=== PATIENT | female | born 1935 | race Caucasian/White ===

== ENCOUNTER 2016-07-08 17:44 | Emergency (ER) | payer MEDICARE ==
[2014-11-23 15:52] VITALS: BMI 21.3
[~2016-07-08 17:44] MED LIST: ARICEPT10 MG PO; BAYER CHEWABLE81 MG PO; BUSPAR10 MG PO; BYSTOLIC10 MG PO; CALCIUM 600+D T1 TA1 PO; KEPPRA250 MG PO; LIPITOR20 MG PO; LISINOPRIL5 MG PO; PERPHENAZINE2 MG PO; VITAMIN C250 MG PO; XANAX0.5 MG PO
[2016-07-08 19:06] LABS: APTT 29.4 SECONDS (22.8-39.4)
[2016-07-08 19:07] LABS: INR 1.11 (0.85-1.17); PROTIME 14.2 SECONDS (11.6-15.0)
[2016-07-08 19:12] LABS: ALBUMIN 3.9 g/dL (3.4-5.0); ANION GAP 13.7 mmol/L (8-16); BILIRUBIN - TOTAL 0.93 mg/dL (0.2-1.3); CALCIUM 8.9 mg/dL (8.5-10.1); CARBON DIOXIDE 27.2 mmol/L (21.0-32.0); POTASSIUM - SERUM 3.9 mmol/L (3.5-5.1)
[2016-07-08 19:17] LABS: HEMATOCRIT 40.6 % (36.0-48.0); HEMOGLOBIN 13.6 g/dL (12-16); MCH 32.6 pg (26.0-34.0); MCHC 33.5 g/dL (31.0-37.0); MCV 97.4 fL (80.0-100.0); MEAN PLATELET VOLUME 11.1 fL (7.4-10.4); PLATELET COUNT 185 10x3/uL (130-400); RBC 4.17 10x6/uL (4.00-5.40); RDW 12.4 % (11.5-14.5)
[2016-07-08 19:33] LABS: LYMPHOCYTES 45 % (15-50); NEUTROPHILS 55 % (40-80); PLATELET ESTIMATE NORMAL
== END 2016-07-08 20:25 | disposition home or self-care (01) ==
LOC: D.ER 17:44
PROVIDERS: Emergency Medicine
DX: G40.909 Epilepsy, unspecified, not intractable, without status epilepticus (principal); I10 Essential (primary) hypertension

== ENCOUNTER 2018-02-20 09:11 | Emergency (ER) | payer MEDICARE ==
[~2018-02-20] VITALS: Ht 166.4 cm; Wt 75.0 kg
[2018-02-20 09:14] VITALS: Ht 166.4 cm; Wt 75.0 kg
[2018-02-20] MEDS ORDERED: SEROQUEL50 MG PO (09:16)
[2018-02-20] MEDS ORDERED: TYLENOL W/CODEI1 TAB PO (10:01)
[2018-02-20 10:52] VITALS: BP 152/72
== END 2018-02-20 10:51 ==
LOC: D.ER 09:11
DX: R07.89 Other chest pain (principal); W18.30XA Fall on same level, unspecified, initial encounter; Y93.89 Activity, other specified; Y92.129 Unspecified place in nursing home as the place of occurrence of the external cause; G40.909 Epilepsy, unspecified, not intractable, without status epilepticus; I10 Essential (primary) hypertension; F03.90 Unspecified dementia, unspecified severity, without behavioral disturbance, psychotic disturbance, mood disturbance, and anxiety

== ENCOUNTER 2018-02-20 14:02 | Emergency (ER) | payer MEDICARE ==
[~2018-02-20] VITALS: Ht 166.4 cm; Wt 59.1 kg
[~2018-02-20 14:02] MED LIST changes: +SEROQUEL50 MG PO; +TYLENOL W/CODEI1 TAB PO
[2018-02-20 14:08] VITALS: Ht 166.4 cm; Wt 59.1 kg
[2018-02-20 16:38] VITALS: BP 158/75
== END 2018-02-20 16:38 ==
LOC: D.ER 14:02
DX: S40.012A Contusion of left shoulder, initial encounter (principal); W18.30XA Fall on same level, unspecified, initial encounter; Y93.89 Activity, other specified; Y92.129 Unspecified place in nursing home as the place of occurrence of the external cause; S20.212A Contusion of left front wall of thorax, initial encounter; G40.909 Epilepsy, unspecified, not intractable, without status epilepticus; I10 Essential (primary) hypertension; F03.90 Unspecified dementia, unspecified severity, without behavioral disturbance, psychotic disturbance, mood disturbance, and anxiety

== ENCOUNTER 2018-05-07 15:28 | Emergency (ER) | payer MEDICARE ==
[~2018-05-07] VITALS: Ht 166.4 cm; Wt 58.6 kg
[2018-05-07 15:29] VITALS: Ht 166.4 cm; Wt 58.6 kg
[2018-05-07] MEDS ORDERED: MIRALAX17 GM PO (17:02)
[2018-05-07 18:15] VITALS: BP 190/68
== END 2018-05-07 18:15 | disposition home or self-care (01) ==
LOC: D.ER 15:28
DX: M25.552 Pain in left hip (principal); R51 Headache; W18.30XA Fall on same level, unspecified, initial encounter; Y93.89 Activity, other specified; Y92.099 Unspecified place in other non-institutional residence as the place of occurrence of the external cause; G40.909 Epilepsy, unspecified, not intractable, without status epilepticus; I11.0 Hypertensive heart disease with heart failure; I50.9 Heart failure, unspecified; F03.90 Unspecified dementia, unspecified severity, without behavioral disturbance, psychotic disturbance, mood disturbance, and anxiety

== ENCOUNTER 2018-08-30 15:30 | Inpatient (IN) | payer MEDICARE ==
[~2018-08-30] VITALS: Ht 166.4 cm; Wt 59.8 kg
[~2018-08-30 15:30] MED LIST changes: +MIRALAX17 GM PO
--- NOTE | 2018-08-31 10:38 | NUR ---
ATIVAN 0.5 MG AND HALDOL 2 MG IM GIVEN FOR AGGRESSION WITH STAFF.
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
--- NOTE | 2018-08-31 11:30 | NUR ---
MEDICATION DID NOT HELP CALM PATIENT VERY MUCH.
[2018-08-31 12:05] LABS: BASOPHILS 0.1 % (0-2); EOSINOPHILS 0.8 % (0-7); HEMATOCRIT 38.8 % (36.0-48.0); HEMOGLOBIN 13.1 g/dL (12-16); IMMATURE GRANULOCYTES 0.1 % (0-5); MCH 32.8 pg (26.0-34.0); MCHC 33.8 g/dL (31.0-37.0); MEAN PLATELET VOLUME 10.9 fL (7.4-10.4); MONOCYTES 4.4 % (2-11); NEUTROPHILS 47.6 % (40-80); RDW 12.7 % (11.5-14.5); WBC 9.1 10x3/uL (4.8-10.8)
[2018-08-31 12:06] LABS: PLATELET COUNT 146 10x3/uL (130-400)
[2018-08-31] MEDS ORDERED: LIPITOR40 MG PO (12:29)
[2018-08-31 12:33] LABS: ALBUMIN 3.9 g/dL (3.4-5.0); ANION GAP 11.9 mmol/L (8-16); BILIRUBIN - TOTAL 0.93 mg/dL (0.2-1.3); CALCIUM 8.7 mg/dL (8.5-10.1); CHOL - HDL RATIO 2.1 ratio (2.3-4.1); LDL-HDL RATIO 0.6 ratio (1.5-3.5); POTASSIUM - SERUM 3.9 mmol/L (3.5-5.1); PROTEIN - SERUM 6.9 g/dL (6.4-8.2); THYROID STIMULATING HORMONE 3.79 uIU/mL (0.36-3.74)
--- NOTE | 2018-08-31 18:33 | NUR ---
PATIENT STARTED BANGING ON WINDOWS AND DOORS. ATIVAN 0.5 MG AND HALDOL 2 MG IM GIVEN IN LEFT DELTOID.
--- NOTE | 2018-08-31 19:28 | NUR ---
PATIENT HAS CALMED SOME. ASSISTED TO RECLINER, RESTING QUIETLY WITH EYES CLOSED.
--- NOTE | 2018-08-31 21:07 | NUR ---
RECEIVED IN DAYROOM. SITTING IN A RECLINING CHAIR. VERY CONFUSED. NO SIGNS OF AGGRESSION AT THIS TIME. ATTEMPTS TO STAND WITHOUT ASSIST. IDANIA ALARM SOUNDING. REDIRECT AND REORIENT NEEDED. CONTINUES TO SIT IN A RECLINER. CONTINUE PLAN OF CARE
[2018-09-01 08:30] VITALS: BP 183/87
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
[2018-09-01 11:04] VITALS: Ht 166.4 cm; Wt 59.8 kg
--- NOTE | 2018-09-01 11:30 | NUR ---
PRN EFFECTIVE AT THIS TIME. PT. SITTING IN DAYROOM WITH PEERS . NO AGGRESSION NOTED AT THIS TIME. WILL CONTINUE TO MONITOR Q 15 MINUTES FOR SAFETY.
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
--- NOTE | 2018-09-01 14:45 | NUR ---
SITTING IN RECLINER IN DAYROOM, CONFUSED, AMBULATES WITH ASSIST, DIFFICULTY FOLLOWING DIRECTIONS, COMBATIVE WITH RE-DIRECTION. MEDS ADMIN PER ORDERS PER MED NURSE. SOMETIMES UNCOOPERATIVE BUT CAN BE RE-DIRECTED. CONT POC INCLUDING MEDS AND GROUP THERAPY DIRECTED.
[2018-09-01 17:08] LABS: FOLATE (FOLIC ACID) - SERUM 11.5 ng/mL (>3.0)
[2018-09-01 20:00] VITALS: BP 153/66
--- NOTE | 2018-09-01 22:03 | NUR ---
RECEIVED IN DAYROOM. RESTING IN A RECLING CHIAR. RESTLESS AT TIMES. COOPERATIVE WITH ASSESSMENT. NO SIGNS OF AGGRESSION. REDIRECT AND REORIENT NEEDED. RESTING QUIETLY IN BED AT THIS TIME. CONTINUE PLAN OF CARE
--- NOTE | 2018-09-01 23:05 | NUR ---
PATIENT DID NOT TAKE P.M. MEDICATIONS. WILL CONT TO ENCOURAGE MEDICATIONS.
[2018-09-02 10:33] VITALS: BP 156/75
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
--- NOTE | 2018-09-02 17:15 | NUR ---
ATIVAN 0.5MG PO AND HALDOL 2MG IM GIVEN FOR AGGRESSION WITH STAFF.WILL NOT REDIRECT.
--- NOTE | 2018-09-02 18:15 | NUR ---
GOOD RESPONSE TO ATIVAN AND HALDOL.IS VERY CONFUSED,RESPONDS TO HER NAME BUT DOES NOT SAY HER NAME WHEN ASKED.WILL CONTINUE WITH PLAN OF CARE,MONITOR FOR CHANGES AND SAFETY.
[2018-09-02 21:07] VITALS: BP 140/70
--- NOTE | 2018-09-02 21:31 | NUR ---
PT. IS AGGRESSIVE AT TIMES, DIFFICULT TO REDIRECT AT TIMES, COMPLIANT WITH MEDS. WILL FOLLOW POC
--- NOTE | 2018-09-03 14:55 | PN ---
PATIENT:VANDANA WILLIAM MEDICAL RECORD: [id number] LOCATION:ADRYAN Hart[facility]na ADMISSION DATE: 08/31/18 PROGRESS NOTE DATE OF SERVICE: 09/02/2018 SUBJECTIVE: The patient's case was discussed with staff. She has no new complaint. OBJECTIVE: The patient slept well last night. She still is not eating well. She is going to be started on Megace to assist with appetite stimulation. Her long-term prognosis is guarded. Supportive and educational interventions were made. TRANSINT:[id number] Voice Confirmation ID: [id number] DOCUMENT ID: [id number] PINKY NAM MD at 1455 CC: [id number] DICTATION DATE: 09/02/18 1358 NETWORKS SOFTWARE CONSULTANT: 09/02/18 1435 ADM IN [id number] [place] [address]
--- NOTE | 2018-09-03 18:33 | NUR ---
PATIENT SITTING IN RECLINER CHAIR NEXT TO NURSES DUE TO ATTEMPTING TO GET UP. RESP EVEN AND NONLBAORED. NO ACUTE DISTRESS NOTED. MED COMPLIANT. CHAIR ALARM IN PLACE. WILL CONT TO MONITOR Q 15 MINS.
[2018-09-03 20:43] VITALS: BP 160/60
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
--- NOTE | 2018-09-04 08:59 | NUR ---
REC'D PT SITTING AT DINING AREA TABLE. RESP EVEN AND NONLABORED. NO ACUTE DISTRESS NOTED. CONFUSION NOTED. WILL CONT PLAN OF CARE.
[2018-09-04 09:40] VITALS: BP 167/77
--- NOTE | 2018-09-04 15:38 | PN ---
PATIENT:VANDANA WILLIAM MEDICAL RECORD: [id number] LOCATION:[facility] ADMISSION DATE: 08/31/18 PROGRESS NOTE DATE OF SERVICE: 09/03/2018 SUBJECTIVE: The patient's case was discussed with staff. She has no new complaint. OBJECTIVE: The patient denies intent to harm herself or others. She has not been disruptive. She still is not eating well. ASSESSMENT: Senile dementia of the Alzheimer's type with behavioral disturbances. PLAN: Current medicines have been reviewed. They will be maintained. I am not sure if she is going to be manageable in the assisted living center, but I will leave that up to the staff at that facility to screen her and decide if they can manage her symptoms. TRANSINT:[id number] Voice Confirmation ID: [id number] DOCUMENT ID: [id number] PINKY NAM MD at 1538 CC: [id number] DICTATION DATE: 09/03/18 1526 IRON CUTTER: 09/03/18 1629 ADM IN [id number] [place] [address]
--- NOTE | 2018-09-04 19:18 | NUR ---
PATIENT SITTING IN CHAIR IN DAY AREA. RESP EVEN AND NONLABORED. NO ACUTE DISTRESS NOTED. PATIENT IS CONFUSED DOES NOT SPEAK MUCH TO STAFF. EATS WELL AT MEALS. CAN AMBULATE WITH ASSISTANCE. CHAIR ALARM IN PLACE. NO BEHAVIORS NOTED AT THIS TIME. WILL CONT PLAN OF CARE.
[2018-09-04 20:28] VITALS: BP 128/56
--- NOTE | 2018-09-05 04:47 | NUR ---
B.) Patient is Alert and soft-spoken. Patient appears withdrawn and avoid conversation with peers. I.) Provided PM medications, crushed and administered in applesauce. R.) Compliant with medications. P.) Continue Plan of Care.
[2018-09-05 09:29] VITALS: BP 136/81
--- NOTE | 2018-09-05 10:43 | NUR ---
RECEIVED PATIENT IN DINING ROOM FOR B'FAST, ALERT, CALM, CONFUSED, NO AGGRESSION NOTED. MEDS ADMIN PER ORDERS WITH COMPLETE MED COMPLIANCE NOTED. COOPERATIVE WITH GROUP AND STAFF REQUESTS. CONT POC INCLUDING MEDS AND GROUP THERAPY DIRECTED.
--- NOTE | 2018-09-05 11:54 | PN ---
PATIENT:VANDANA WILLIAM MEDICAL RECORD: [id number] LOCATION:[facility] ADMISSION DATE: 08/31/18 PROGRESS NOTE DATE OF SERVICE: 09/04/2018 SUBJECTIVE: The patient's case was discussed with staff. She has no new complaint. OBJECTIVE: The patient denies intent to harm herself or others. She is tolerating her medicines well. She has been quite confused. At this point, she has been expelled from the [facility] [place] and is homeless. I know that another facility can be arranged to just has not been arranged at this point and probably is not a critical factor since I do not think behaviorally she is ready to go today either, but she should be early next week if this level of improvement continues. I have reviewed current medicines and intend to maintain them. TRANSINT:[id number] Voice Confirmation ID: [id number] DOCUMENT ID: [id number] PINKY NAM MD at 1154 CC: [id number] DICTATION DATE: 09/04/18 1638 CAMERA MACHINIST: 09/04/18 2318 ADM IN [facility] [address] [place] [address]
[2018-09-05 22:04] VITALS: BP 140/60
--- NOTE | 2018-09-06 01:01 | NUR ---
B.) Patient is alert and oriented to person only. She is pleasantly confused. She exhibits expressive aphasia. I.) Provided PM medications. R.) Compliant with all Prescribed Medications. P.) Continue Plan of Care.
--- NOTE | 2018-09-06 04:46 | NUR ---
PATIENT C/O RIGHT UPPER ABD PAIN 7/10 SHARP AND ACUTE PAIN. ADMINISTERED PRN TYLENOL/CODEINE (TYLENOL #3) 300-30 TABLET PO.
[2018-09-06 07:00] VITALS: BP 196/77
--- NOTE | 2018-09-06 09:30 | NUR ---
RECEIVED PATIENT IN DINING ROOM FOR B'FAST, ALERT, CALM, COOPERATIVE, LAUGHS INAPPROPRIATELY AT TIMES. MEDS ADMIN PER ORDERS WITH COMPLETE MED COMPLIANCE NOTED. COOPERATIVE WITH POC. CONT POC INCLUDING MEDS AND GROUP THERAPY DIRECTED.
--- NOTE | 2018-09-06 10:05 | NUR ---
PT. HITTING AND KICKING STAFF. UNABLE TO REDIRECT. ATIVAN 0.5 MG AND HALDOL 2 MG ADMIN FOR ANXIETY.
--- NOTE | 2018-09-06 10:30 | NUR ---
Resting quietly in recliner, eyes closed, no further episodes of aggression.
--- NOTE | 2018-09-06 13:01 | PN ---
PATIENT:VANDANA WILLIAM MEDICAL RECORD: [id number] LOCATION:[facility] Hart113 ADMISSION DATE: 08/31/18 PROGRESS NOTE DATE OF SERVICE: 09/05/2018 SUBJECTIVE: The patient's case was discussed with staff. She has no new complaint. OBJECTIVE: The patient is in good behavioral control with limited insight about her condition. She tolerates her medicines well. ASSESSMENT: Senile dementia of the Alzheimer's type with behavioral disturbances. PLAN: Supportive and educational interventions were made. Long-term prognosis is guarded. TRANSINT:[id number] Voice Confirmation ID: [id number] DOCUMENT ID: [id number] PINKY NAM MD at 1301 CC: [id number] DICTATION DATE: 09/05/18 1217 GERIATRIC NURSE PRACTITIONER: 09/05/18 1243 ADM IN [address] [place] [address]
[2018-09-06 23:14] VITALS: BP 178/84
--- NOTE | 2018-09-07 00:37 | NUR ---
B.) Patient has been asleep since shortly after dinner. I.) Woke patient long enough to give PM medications. R.) Compliant with PM medications and returned to sleep immediately following administration. P.) Continue Plan of Care.
[2018-09-07 07:00] VITALS: BP 169/95
--- NOTE | 2018-09-07 07:30 | NUR ---
PT IS ALERT AND ORIENTED TO PERSON ONLY. CALM AND COOPERATIVE WITH ASSESSMENT. PRESCRIBED MEDS PROVIDED. MED COMPLIANT. REDIRECT AND REORIENT NEEDED. NO AGGRESSION NOTED AT THIS TIME. FALL PRECAUTIONS IN PLACE. WILL CPOC.
--- NOTE | 2018-09-07 12:49 | NUR ---
Nutrition follow up Regular diet with 43% average po intake On Megace BM yesterday Weight 129lb stable (pt has CHF) Will add Ensure daily RD following
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
--- NOTE | 2018-09-07 21:01 | NUR ---
REC'D PATIENT SITTING IN CHAIR IN DAY AREA. RESP EVEN AND NONLABORED. CONFUSION NOTED. AAOX1. MEDICATION COMPLIANT. CHAIR ALARM IN PLACE AND ACTIVE. NO DISTRESS NOTED. WILL CONT PLAN OF CARE.
[2018-09-08 05:15] VITALS: BP 133/97
--- NOTE | 2018-09-08 07:30 | NUR ---
PT IS ALERT AND ORIENTED TO PERSON ONLY. PT CALM AND COOPERATIVE WITH ASSESSMENT AT THIS TIME. NO AGGRESSION NOTED. MED COMPLIANT. REDIRECT AND REORIENT NEEDED. FALL PRECAUTIONS IN PLACE. WILL CPOC.
[2018-09-08 11:56] VITALS: BP 158/89
--- NOTE | 2018-09-08 15:19 | PN ---
PATIENT:VANDANA WILLIAM MEDICAL RECORD: [id number] LOCATION:[facility] Hart[facility] ADMISSION DATE: 08/31/18 PROGRESS NOTE DATE OF SERVICE: 09/07/2018 SUBJECTIVE: The patient's case was discussed with staff. She has no new complaint. OBJECTIVE: The patient is not eating adequately. She is significantly calmer. ASSESSMENT: Senile dementia of the Alzheimer's type with behavioral disturbances. PLAN: Current medicines have been reviewed and will be maintained. Her long-term prognosis is guarded. Supportive and educational interventions were made. TRANSINT:[id number] Voice Confirmation ID: [id number] DOCUMENT ID: [id number] PINKY NAM MD at 1519 CC: [id number] DICTATION DATE: 09/07/18 1538 SHOW DESIGN SUPERVISOR: 09/07/18 1729 ADM IN [facility] [address] [place] [address]
--- NOTE | 2018-09-08 20:57 | NUR ---
RECEIVED IN BEDROOM. ASSIST TO TRANSFERE TO BED. CALM AND COOPERATIVE WITH CARE AND ASSESSMENT. NO SIGNS OF AGGRESSION. REDIRECT AND REORIENT NEEDED. RESTING IN BED WITH EYES CLOSED. CONTINUE PLAN OF CARE
[2018-09-09 01:35] VITALS: BP 170/74
--- NOTE | 2018-09-09 12:39 | PN ---
PATIENT:VANDANA WILLIAM MEDICAL RECORD: [id number] LOCATION:[facility] Hart113 ADMISSION DATE: 08/31/18 PROGRESS NOTE DATE OF SERVICE: 09/08/2018 SUBJECTIVE: The patient's case was discussed with staff. She has no new complaint. OBJECTIVE: The patient denies intent to harm herself or others. She is tolerating her medicines well. ASSESSMENT: Senile dementia of the Alzheimer's type with behavioral disturbances. PLAN: Brief supportive and educational interventions were made. Long-term prognosis is guarded. She still is not eating adequately. TRANSINT:[id number] Voice Confirmation ID: [id number] DOCUMENT ID: [id number] PINKY NAM MD at 1239 CC: [id number] DICTATION DATE: 09/08/18 1546 NURSING SECRETARY: 09/08/18 1607 ADM IN [id number] [place] [address]
[2018-09-09 14:01] LABS: BILIRUBIN - TOTAL 1.82 mg/dL (0.2-1.3); CALCIUM 9.2 mg/dL (8.5-10.1); CARBON DIOXIDE 26.9 mmol/L (21.0-32.0); CREATININE - SERUM 1.2 mg/dL (0.6-1.3); POTASSIUM - SERUM 3.9 mmol/L (3.5-5.1); PROTEIN - SERUM 6.8 g/dL (6.4-8.2); T4 THYROXIN - FREE 1.05 ng/dL (0.76-1.46); THYROID STIMULATING HORMONE 2.11 uIU/mL (0.36-3.74)
[2018-09-09 14:02] LABS: HEMATOCRIT 39.9 % (36.0-48.0); HEMOGLOBIN 13.9 g/dL (12-16); MCH 33.1 pg (26.0-34.0); MCHC 34.8 g/dL (31.0-37.0); RDW 12.2 % (11.5-14.5); WBC 17.5 10x3/uL (4.8-10.8)
[2018-09-09 14:04] LABS: PLATELET COUNT 198 10x3/uL (130-400)
[2018-09-09 14:30] LABS: LYMPHOCYTES 47 % (15-50); MONOCYTES 7 % (2-11); NEUTROPHILS 44 % (40-80)
[2018-09-09 14:31] LABS: PLATELET ESTIMATE NORMAL
--- NOTE | 2018-09-09 17:42 | NUR ---
IS ORIENTED TO SELF ONLY.COMPLIANT WITH STAFF AND MEDS.MEDS CRUSHED AND GIVEN IN APPLESAUCE.NO AGGRESSION OBSERVED.JAH DIAL.WILL CONTINUE WITH CURRENT PLAN OF CARE,MONITOR FOR CHANGES AND SAFETY.
[2018-09-09 20:00] VITALS: BP 122/57
--- NOTE | 2018-09-09 22:30 | NUR ---
B.) Patient is calm and cooperative. I.) Fall precautions in place. Provided PM medications R.) Patient free from falls. Compliant with PM medications. P.) Continue Plan of Care.
--- NOTE | 2018-09-10 08:21 | PN ---
PATIENT:VANDANA WILLIAM MEDICAL RECORD: [id number] LOCATION:ADRYAN Hart[facility]arianna ADMISSION DATE: 08/31/18 PROGRESS NOTE DATE OF SERVICE: 09/09/2018 SUBJECTIVE: The patient's case was discussed with staff. She has no new complaint. OBJECTIVE: The patient is in good behavioral control with poor insight about her condition. She tolerates her medicines well. ASSESSMENT: Senile dementia of the Alzheimer's type with behavioral disturbances. PLAN: The patient is not eating adequately. She will be given Megace to assist with appetite stimulation. Her long-term prognosis is guarded. TRANSINT:[id number] Voice Confirmation ID: [id number] DOCUMENT ID: [id number] PINKY NAM MD at 0821 CC: [id number] DICTATION DATE: 09/09/18 1413 BUSINESS OFFICE COORDINATOR: 09/09/18 1505 ADM IN [id number] [place] [id number]
[2018-09-10 09:53] VITALS: BP 139/54
[2018-09-10 10:07] LABS: BASOPHILS 0.2 % (0-2); EOSINOPHILS 0.3 % (0-7); HEMOGLOBIN 13.9 g/dL (12-16); IMMATURE GRANULOCYTES 0.2 % (0-5); LYMPHOCYTES 62.9 % (15-50); MCH 32.9 pg (26.0-34.0); MCHC 33.9 g/dL (31.0-37.0); MEAN PLATELET VOLUME 11.4 fL (7.4-10.4); MONOCYTES 2.8 % (2-11); NEUTROPHILS 33.6 % (40-80); PLATELET COUNT 200 10x3/uL (130-400); RBC 4.22 10x6/uL (4.00-5.40); RDW 12.9 % (11.5-14.5); WBC 18.9 10x3/uL (4.8-10.8)
[2018-09-10 10:17] LABS: ANION GAP 13.7 mmol/L (8-16); CALCIUM 8.8 mg/dL (8.5-10.1); CARBON DIOXIDE 27.8 mmol/L (21.0-32.0); POTASSIUM - SERUM 3.5 mmol/L (3.5-5.1)
[2018-09-10 10:22] LABS: MCV 97.2 fL (80.0-100.0)
--- NOTE | 2018-09-10 15:02 | NUR ---
IS CONFUSED AND DISORIENTED.COMPLIANT WITH STAFF AND MEDS.SMILES FREQUENTLY.WILL CONTINUE WITH PLAN OF CARE,MONITOR FOR CHANGES AND SAFETY.
[2018-09-10 20:00] VITALS: BP 141/70
--- NOTE | 2018-09-10 23:09 | NUR ---
B) Patient is alert and oriented to self, pleasant and friendly and clueless, I) Administered scheduled medications crushed in apple sauce, assisted with needs, R) Mediation comploant, follow instructions, P) Continue plan of care.
[2018-09-11 07:36] VITALS: BP 128/72
--- NOTE | 2018-09-11 09:04 | NUR ---
SW SPOKE TO PT'S POA, FARZAD, TO DISCUSS DISCHARGE PLANNING. PT WAS DENIED BY [facility] AND WILL BE ASSESSED BY [facility]. SW SPOKE TO [facility] AFTER 5PM AND THEY WILL ACCEPT PT ON FRIDAY. LATE ENTRY FROM 09/10
--- NOTE | 2018-09-11 11:50 | NUR ---
Obtained a urine in and out cath for ua and c&s.
[2018-09-11 13:00] LABS: APPEARANCE CLEAR (CLEAR); BILIRUBIN NEGATIVE (NEGATIVE); COLOR YELLOW (YELLOW); GLUCOSE NEGATIVE (NEGATIVE); KETONE NEGATIVE (NEGATIVE); NITRITE NEGATIVE (NEGATIVE); PROTEIN TRACE mg/dL (NEGATIVE); SPECIFIC GRAVITY 1.015 (1.005-1.020); UROBILINOGEN NORMAL (NORMAL)
[2018-09-11 13:01] LABS: BACTERIA FEW /hpf (NONE SEEN); EPITHELIAL CELLS OCC /hpf (0-5); MUCUS <1+ /lpf (NONE SEEN); WHITE CELLS - URINE OCC /hpf (0-5)
--- NOTE | 2018-09-11 13:17 | NUR ---
B) The patient is awake and alert, she is pleasant and compliant with meds. She smiles but does not say much or if she does she will have word salad. Did take her to the bathroom 2 x and she was not able to void urine. Lillie Simms APN did ask for a urine sample before her Rocephin antibiotic is started. Did get the sample by in and out cath. Her UA does show some bacteria. She is to get a CXR also d/t her elevated WBC. I) Provide prescribed meds. R) The patient is compliant with meds. She can ambulate with staff assist. P) Continue POC.
--- NOTE | 2018-09-11 14:13 | NUR ---
X-RAY IS HERE DOING THE PATIENT'S CHEST X-RAY.
--- NOTE | 2018-09-11 15:15 | PN ---
PATIENT:VANDANA WILLIAM MEDICAL RECORD: [id number] LOCATION:ADRYAN Hart[facility]na ADMISSION DATE: 08/31/18 PROGRESS NOTE DATE OF SERVICE: 09/10/2018 SUBJECTIVE: The patient was seen for daily rounds. Her case was discussed with staff. OBJECTIVE: The patient is very confused, only partially oriented but not aggressive. She shows no evidence of psychotic symptoms. I do not think she is eating adequately, but she has been placed on Megace to assist with appetite stimulation. ASSESSMENT: Senile dementia of the Alzheimer's type with behavioral disturbances. PLAN: The patient has been denied acceptance into the [facility] [place]. custodial placement will be sought. TRANSINT:[id number] Voice Confirmation ID: [id number] DOCUMENT ID: [id number] PINKY NAM MD at 1515 CC: [id number] DICTATION DATE: 09/10/18 1548 ACTUARY CLERK: 09/10/18 1804 ADM IN [id number] [place] [id number]
[2018-09-11 20:09] VITALS: BP 129/48
--- NOTE | 2018-09-11 22:06 | NUR ---
B.) Patient is Alert. She is oriented to person only. She is resting calmly in her ayesha-chair. I.) Provide PM medications. Reposition in the chair q2 or PRN. R.) Patient refused PM medications. Patient appears more comfortable in her chair and smiles big when asked if she is comfortable. P.) Continue Plan of Care.
[2018-09-12 08:19] VITALS: BP 153/72
[2018-09-12 08:22] LABS: HEMATOCRIT 40.6 % (36.0-48.0); HEMOGLOBIN 13.8 g/dL (12-16); MCH 32.4 pg (26.0-34.0); MCV 95.3 fL (80.0-100.0); MEAN PLATELET VOLUME 11.4 fL (7.4-10.4); PLATELET COUNT 207 10x3/uL (130-400); RBC 4.26 10x6/uL (4.00-5.40); RDW 12.9 % (11.5-14.5); WBC 20.6 10x3/uL (4.8-10.8)
[2018-09-12 08:29] LABS: ALBUMIN 3.9 g/dL (3.4-5.0); ANION GAP 17.1 mmol/L (8-16); BILIRUBIN - TOTAL 1.17 mg/dL (0.2-1.3); CALCIUM 8.9 mg/dL (8.5-10.1); CARBON DIOXIDE 23.1 mmol/L (21.0-32.0); CREATININE - SERUM 1.1 mg/dL (0.6-1.3); PROTEIN - SERUM 6.9 g/dL (6.4-8.2)
[2018-09-12 08:30] LABS: POTASSIUM - SERUM 4.2 mmol/L (3.5-5.1)
[2018-09-12 09:04] LABS: EOSINOPHILS 2 % (0-7); LYMPHOCYTES 64 % (15-50); MONOCYTES 3 % (2-11); NEUTROPHILS 31 % (40-80); PLATELET ESTIMATE DECREASED
--- NOTE | 2018-09-12 10:50 | NUR ---
B) The patient is awake and she is pleasant she is oriented to her name, but she is not able to say her name. She ambulates with assist only. She has poor insight into her situation. I) Provide prescribed meds. R) The patient is compliant with meds. She is quiet and interacts in groups at times. P) Continue POC.
--- NOTE | 2018-09-12 11:04 | NUR ---
PATIENT BEGAN SENOKOT 2 TAB PO FOR CONSTIPATION. MIRALAX WAS D/C YESTERDAY. PT HAD A LARGE LOOSE BOWEL MOVEMENT THIS AM. WILL CONT TO MONITOR.
--- NOTE | 2018-09-12 11:17 | PN ---
PATIENT:VANDANA WILLIAM MEDICAL RECORD: [id number] LOCATION:[facility] ADMISSION DATE: 08/31/18 PROGRESS NOTE DATE OF SERVICE: 09/11/2018 SUBJECTIVE: The patient's case was discussed with staff. She has no new complaint. OBJECTIVE: The patient denies intent to harm herself or others. She is tolerating her medicines well. She is severely impaired cognitively. ASSESSMENT: No change in diagnoses. Somewhat to my surprise, the [facility] [place] has accepted her and I will transfer her there on Friday. She does need 79-gunn-w-day supervision. She requires a lot of attention and redirection. She is a high fall risk. Nevertheless, they feel they can handle her. I will discharge her at their request on Friday, assuming this level of improvement continues through the weekend. TRANSINT:[id number] Voice Confirmation ID: [id number] DOCUMENT ID: [id number] PINKY NAM MD at 1117 CC: [id number] DICTATION DATE: 09/11/18 1529 LAUNDRY FOLDER: 09/11/18 1544 ADM IN [facility] [address] [place] [address]
[2018-09-12 21:57] VITALS: BP 155/77
--- NOTE | 2018-09-12 22:43 | NUR ---
PATIENT IS PROFOUNDLY CONFUSED. SPITTING OUT MEDS, CAN NOT MAKE NEEDS KNOWN, TOTALLY DEPENDENT ON OTHERS FOR ALL CARE.
[2018-09-13 07:00] VITALS: BP 117/70
--- NOTE | 2018-09-13 08:12 | NUR ---
PT WEIGHT OBTAINED IN CHAIR. CHAIR WEIGHED AND LABELED. PT ON SCALE. SUBSTRACT CHAIR WT FROM PT'S WT. FOR TOTALING WT.
--- NOTE | 2018-09-13 09:28 | NUR ---
PT IS AWAKE AND ALERT TO NAME ONLY. PT IS CALM AND COOPERATIVE WITH ASSESSMENT AT THIS TIME. PT IS SITING IN RECLINING CHAIR WITH PEERS WATCHING TV. PRESCRIBED MEDS PROVIDED. MAINTENANCE MEDICATIONS HELD PER DR. BELL ORDERS AT THIS TIME. REDIRECT AND REORIENT NEEDED. NO BEHAVIORS NOTED AT THIS TIME. FALL PRECAUTIONS IN PLACE. MED COMPLIANT WITH ORDERS FROM DR. NAM. WILL CPOC.
--- NOTE | 2018-09-13 09:42 | PN ---
PATIENT:VANDANA WILLIAM MEDICAL RECORD: [id number] LOCATION:[facility] ADMISSION DATE: 08/31/18 PROGRESS NOTE DATE OF SERVICE: 09/12/2018 SUBJECTIVE: The patient's case was discussed with staff. She has no new complaint. OBJECTIVE: The patient denies intent to harm herself or others. She is tolerating her medicines well. ASSESSMENT: No change in diagnoses. PLAN: Current medicines have been reviewed. They will be maintained. I anticipate she can be transitioned out of the hospital on Friday if this level of improvement continues. TRANSINT:[id number] Voice Confirmation ID: [id number] DOCUMENT ID: [id number] PINKY NAM MD at 0942 CC: [id number] DICTATION DATE: 09/12/18 1124 GUIDEMAN: 09/12/18 1210 ADM IN [address] [address] [place] [address]
[2018-09-13] MEDS ORDERED: BYSTOLIC5 MG PO (10:18)
[2018-09-13] MEDS ORDERED: Aricept PO (10:18)
[2018-09-13] MEDS ORDERED: LISINOPRIL10 MG PO (10:18)
[2018-09-13] MEDS ORDERED: KLONOPIN0.5 MG PO (10:19)
[2018-09-13] MEDS ORDERED: GEODON20 MG PO (10:19)
[2018-09-13] MEDS ORDERED: MEGACE ES625 MG/5 M PO (10:20)
[2018-09-13] MEDS ORDERED: FLORAJEN3 CAPS460 MG PO (10:20)
[2018-09-13] MEDS ORDERED: PROTONIX40 MG PO (10:20)
[2018-09-13] MEDS ORDERED: SENNA8.6 MG PO (10:20)
--- NOTE | 2018-09-13 14:00 | NUR ---
PT ASSISTED TO SHOWER PER STAFF X 2. PT WAS CALM AND COOPERATIVE WITH SHOWER AND CARE PROVIDED. PT RESTING QUIETLY IN RECLINING CHAIR WITH ALARM IN PLACE AND WORKING. NO S/SX OF DISTRESS NOTED. WILL CONTINUE TO MONITOR Q 15 MINUTES FOR SAFETY.
[2018-09-13 20:09] VITALS: BP 144/70
--- NOTE | 2018-09-13 23:55 | NUR ---
PATIENT IS PROFOUNDLY CONFUSED, INCONTINENT, CAN NOT MAKE NEEDS KNOWN.
[2018-09-14 08:30] VITALS: BP 132/54
--- NOTE | 2018-09-14 10:15 | NUR ---
RECEIVED PATIENT IN DINING ROOM FOR B'FAST, ALERT, CONFUSED, CALM, COOPERATIVE WITH CARE. MEDS ADMIN PER ORDERS WITH COMPLETE MED COMPLIANCE NOTED. COOPERATIVE WITH POC STAFF REQUESTS. CONT POC DIRECTED INCLUDING MEDS AND THERAPY.
--- NOTE | 2018-09-14 11:17 | NUR ---
BERTO PHONED IN TO [facility] IN [place].
--- NOTE | 2018-09-14 14:55 | NUR ---
PATIENT'S BELONGINGS RETURNED TO PATIENT. A PAIR OF SHOES AND THE CLOTHING SHE WAS WEARING WERE THE ONLY BELONGINGS IN THE PATIENT'S POSSESSION. REPORT CALLED TO THE [facility] AND PATIENT ASSISTED ONTO THE ME VAN FOR TRANSPORT. PT. DENIES PAIN, NO S/S DISTRESS. PATIENT CONTINUES TO BE CONFUSED, BUT NO AGGRESSION. PATIENT DISCHARGED FROM UNIT.
--- NOTE | 2018-09-14 15:05 | PN ---
PATIENT:VANDANA WILLIAM MEDICAL RECORD: [id number] LOCATION:[facility] ADMISSION DATE: 08/31/18 PROGRESS NOTE DATE OF SERVICE: 09/13/2018 SUBJECTIVE: The patient's case was discussed with staff. She has no new complaint. OBJECTIVE: The patient is quite impaired, but not behaviorally disruptive. She certainly needs 06-vtnf-u-day supervision. ASSESSMENT: Senile dementia of the Alzheimer's type with behavioral disturbances. PLAN: Current medicines have been reviewed and will be maintained. I anticipate she can be transitioned out of the hospital tomorrow if this level of improvement continues. TRANSINT:[id number] Voice Confirmation ID: [id number] DOCUMENT ID: [id number] PINKY NAM MD at 1505 CC: [id number] DICTATION DATE: 09/13/18 1014 LEAD ATHLETE: 09/13/18 1642 ADM IN [place] [id number] [place] [address]
== END 2018-09-14 14:55 | disposition home or self-care (01) | DRG 57 ==
LOC: D.PSYCH 15:30
PROVIDERS: Family Medicine; ADMIT Psychiatry & Neurology Psychiatry; ATTEND Psychiatry & Neurology Psychiatry
DX: G30.1 Alzheimer's disease with late onset (principal); F02.81 Dementia in other diseases classified elsewhere, unspecified severity, with behavioral disturbance; N17.9 Acute kidney failure, unspecified; I11.0 Hypertensive heart disease with heart failure; I50.9 Heart failure, unspecified; E78.5 Hyperlipidemia, unspecified; F41.9 Anxiety disorder, unspecified; K59.00 Constipation, unspecified; R63.0 Anorexia; E03.9 Hypothyroidism, unspecified; D72.829 Elevated white blood cell count, unspecified; E53.8 Deficiency of other specified B group vitamins; K21.9 Gastro-esophageal reflux disease without esophagitis

== ENCOUNTER 2018-09-28 13:02 | Emergency (ER) | payer MEDICARE ==
[~2018-09-28] VITALS: Ht 166.4 cm; Wt 61.4 kg
[~2018-09-28 13:02] MED LIST changes: +Aricept PO; +BYSTOLIC5 MG PO; +FLORAJEN3 CAPS460 MG PO; +GEODON20 MG PO; +KLONOPIN0.5 MG PO; +LIPITOR40 MG PO; +LISINOPRIL10 MG PO; +MEGACE ES625 MG/5 M PO; +PROTONIX40 MG PO; +SENNA8.6 MG PO
[2018-09-28 13:07] VITALS: BP 143/65; Ht 166.4 cm; Wt 61.4 kg
== END 2018-09-28 18:29 ==
LOC: D.ER 13:02
DX: F03.90 Unspecified dementia, unspecified severity, without behavioral disturbance, psychotic disturbance, mood disturbance, and anxiety (principal); W18.30XA Fall on same level, unspecified, initial encounter; Y93.89 Activity, other specified; Y92.129 Unspecified place in nursing home as the place of occurrence of the external cause

== ENCOUNTER 2018-10-21 12:37 | Emergency (ER) | payer MEDICARE ==
[~2018-10-21] VITALS: Ht 166.4 cm; Wt 68.2 kg
[2018-10-21 12:46] VITALS: Ht 166.4 cm; Wt 68.2 kg
[2018-10-21 16:03] VITALS: BP 155/73
== END 2018-10-21 16:04 ==
LOC: D.ER 12:37
DX: S05.41XA Penetrating wound of orbit with or without foreign body, right eye, initial encounter (principal); W18.30XA Fall on same level, unspecified, initial encounter; Y93.89 Activity, other specified; Y92.129 Unspecified place in nursing home as the place of occurrence of the external cause

== ENCOUNTER 2018-10-30 16:24 | Emergency (ER) | payer MEDICARE ==
[~2018-10-30] VITALS: Ht 166.4 cm; Wt 59.1 kg
[2018-10-30 16:28] VITALS: Ht 166.4 cm; Wt 59.1 kg
[2018-10-30 19:45] VITALS: BP 179/80
== END 2018-10-30 19:45 ==
LOC: D.ER 16:24
DX: G30.9 Alzheimer's disease, unspecified (principal); F02.80 Dementia in other diseases classified elsewhere, unspecified severity, without behavioral disturbance, psychotic disturbance, mood disturbance, and anxiety; R07.81 Pleurodynia; W18.30XA Fall on same level, unspecified, initial encounter; Y93.89 Activity, other specified; Y92.099 Unspecified place in other non-institutional residence as the place of occurrence of the external cause

== ENCOUNTER 2018-11-10 15:36 | Inpatient (IN) | payer MEDICARE ==
[~2018-11-10] VITALS: Ht 166.4 cm; Wt 48.1 kg
[2018-11-10 15:57] LABS: BASOPHILS 0.2 % (0-2); EOSINOPHILS 0.3 % (0-7); HEMATOCRIT 28.4 % (36.0-48.0); HEMOGLOBIN 9.5 g/dL (12-16); IMMATURE GRANULOCYTES 0.1 % (0-5); LYMPHOCYTES 40.9 % (15-50); MCH 33.7 pg (26.0-34.0); MCHC 33.5 g/dL (31.0-37.0); MCV 100.7 fL (80.0-100.0); MEAN PLATELET VOLUME 10.4 fL (7.4-10.4); NEUTROPHILS 54.5 % (40-80); PLATELET COUNT 167 10x3/uL (130-400); RBC 2.82 10x6/uL (4.00-5.40); RDW 15.3 % (11.5-14.5); WBC 11.6 10x3/uL (4.8-10.8)
[2018-11-10 16:22] LABS: ALBUMIN 3.1 g/dL (3.4-5.0); ANION GAP 12.7 mmol/L (8-16); BILIRUBIN - TOTAL 0.72 mg/dL (0.2-1.3); CALCIUM 8.1 mg/dL (8.5-10.1); CARBON DIOXIDE 25.8 mmol/L (21.0-32.0); CREATININE - SERUM 0.9 mg/dL (0.6-1.3); POTASSIUM - SERUM 3.5 mmol/L (3.5-5.1); PROTEIN - SERUM 5.9 g/dL (6.4-8.2)
[2018-11-10 16:27] LABS: APTT 27.3 SECONDS (22.8-39.4); INR 1.25 (0.85-1.17); PROTIME 15.2 SECONDS (11.6-15.0)
[2018-11-10 16:45] LABS: APPEARANCE CLEAR (CLEAR); BILIRUBIN NEGATIVE (NEGATIVE); COLOR YELLOW (YELLOW); EPITHELIAL CELLS 0-5 /hpf (0-5); GLUCOSE NEGATIVE (NEGATIVE); KETONE NEGATIVE (NEGATIVE); NITRITE NEGATIVE (NEGATIVE); PROTEIN NEGATIVE (NEGATIVE); SPECIFIC GRAVITY 1.015 (1.005-1.020); UROBILINOGEN NORMAL (NORMAL); WHITE CELLS - URINE 0-5 /hpf (0-5)
[2018-11-10 16:46] LABS: BACTERIA FEW /hpf (NONE SEEN)
[2018-11-10 17:55] VITALS: BP 153/65; BMI 19.7
[2018-11-10 19:00] VITALS: BP 169/91
[2018-11-10 20:00] VITALS: BP 143/113
[2018-11-10 21:00] VITALS: BP 136/82
[2018-11-10 22:00] VITALS: BP 135/54
[2018-11-10 23:00] VITALS: BP 171/102
[2018-11-11] VITALS (25 sets, daily range): BP systolic 108–189; BP diastolic 43–78; Ht 166.4 cm; Wt 48.1 kg
[2018-11-11] MEDS ORDERED: SINGULAIR10 MG PO (01:43)
[2018-11-11 04:21] LABS: BASOPHILS 0.1 % (0-2); EOSINOPHILS 0 % (0-7); HEMATOCRIT 33.2 % (36.0-48.0); HEMOGLOBIN 11.2 g/dL (12-16); IMMATURE GRANULOCYTES 0.1 % (0-5); LYMPHOCYTES 55.4 % (15-50); MCH 33.6 pg (26.0-34.0); MCHC 33.7 g/dL (31.0-37.0); MCV 99.7 fL (80.0-100.0); MEAN PLATELET VOLUME 10.6 fL (7.4-10.4); MONOCYTES 0.3 % (2-11); NEUTROPHILS 44.1 % (40-80); RBC 3.33 10x6/uL (4.00-5.40); RDW 15.2 % (11.5-14.5)
[2018-11-11 04:29] LABS: PLATELET COUNT 208 10x3/uL (130-400); WBC 16.1 10x3/uL (4.8-10.8)
[2018-11-11 04:38] LABS: ALBUMIN 3.4 g/dL (3.4-5.0); BILIRUBIN - TOTAL 1.17 mg/dL (0.2-1.3); CALCIUM 8.7 mg/dL (8.5-10.1); CARBON DIOXIDE 28.5 mmol/L (21.0-32.0); CREATININE - SERUM 0.8 mg/dL (0.6-1.3); PHOSPHOROUS 3.4 mg/dL (2.5-4.9); POTASSIUM - SERUM 3.5 mmol/L (3.5-5.1); PROTEIN - SERUM 6.7 g/dL (6.4-8.2)
--- NOTE | 2018-11-11 16:28 | MORECARE ---
CASE MANAGEMENT DISCHARGE SUMMARY PATIENT: VANDANA IWLLIAM UNIT: [id number] ADM DATE: 11/10/18 AGE: 83 : 33 SEX: F ROOM/BED: [facility] AUTHOR: MATHEW WYNN PHYSICIAN: REFERRING PHYSICIAN: JOHANA EL MD DATE OF SERVICE: 11/11/18 Discharge Plan Patient Name: VANDANA WILLIAM Facility: [facility]:[place] : 1935 Planned Disposition: Assisted Living Anticipated Discharge Date: Discharge Date: Expected LOS: Initial Reviewer: [email or web address] Initial Review Date: 11/10/2018 Generated: 11/11/18 5:28 pm Patient Name: VANDANA WILLIAM Page [id number] at 1628 All edits/amendments must be made on the electronic document DICTATION DATE: 11/11/181627 BUILDING ADMIN: SHIVA 11/11/188 RPT#: [id number] DC DATE: STATUS: ADM IN [facility] [address] [place] [address] END OF REPORT
--- NOTE | 2018-11-11 16:39 | MORECARE ---
CASE MANAGEMENT DISCHARGE SUMMARY PATIENT: VANDANA WILLIAM UNIT: [id number] ADM DATE: 11/10/18 AGE: 83 : 33 SEX: F ROOM/BED: [facility] AUTHOR: MATHEW WYNN PHYSICIAN: REFERRING PHYSICIAN: JOHANA EL MD DATE OF SERVICE: 11/11/18 Discharge Plan Patient Name: VANDANA WILLIAM [facility] : 1935 Planned Disposition: Assisted Living Anticipated Discharge Date: Discharge Date: Expected LOS: Initial Reviewer: [email or web address] Initial Review Date: 11/10/2018 Generated: 11/11/18 5:39 pm DCPIA - Discharge Planning Initial Assessment Updated by [email or web address]: Bianca Roe on 11/11/18 4:32 pm * Is the patient Alert and Oriented? No * PCP [facility] * Pharmacy [facility] * Preadmission Environment Memory Care * Other Environment LOCKED UNIT * Facility Name [facility] * ADLs Independent * Equipment None * List name and contact numbers for known caregivers / representatives who currently or will assist patient after discharge: FARZAD ONIEL [facility] - [phone] * Verbal permission to speak to the caregivers and representatives has been obtained from the patient. N/A * Additional services required to return to the preadmission environment? No * Can the patient safely return to the preadmission environment? Yes * Has this patient been hospitalized within the prior 30 days at any hospital? No Last DP export: 11/11/18 3:28 p Patient Name: VANDANA WILLIAM Page [id number] at 1639 All edits/amendments must be made on the electronic document DICTATION DATE: 11/11/181637 SENIOR SSIS DEVELOPER: SHIVA 11/11/181637 RPT#: [id number] DC DATE: STATUS: ADM IN [facility] [address] [place] [address] END OF REPORT
--- NOTE | 2018-11-11 17:04 | MORECARE ---
CASE MANAGEMENT DISCHARGE SUMMARY PATIENT: VANDANA WILLIAM UNIT: [id number] ADM DATE: 11/10/18 AGE: 83 : 33 SEX: F ROOM/BED: D[facility] AUTHOR: KINGSLEY,DOC PHYSICIAN: REFERRING PHYSICIAN: JOHANA EL MD DATE OF SERVICE: 11/11/18 Discharge Plan Patient Name: VANDANA WILLIAM Facility: [facility]:[place] : 1935 Planned Disposition: Assisted Living Anticipated Discharge Date: Discharge Date: Expected LOS: Initial Reviewer: [email or web address] Initial Review Date: 11/10/2018 Generated: 11/11/18 6:03 pm Comments DCP- Discharge Planning Updated by [email or web address]: Bianca Roe on 11/11/18 4:[address] Patient Name: VANDANA WILLIAM Admission Status: ER Accout number: [id number] Admission Date: 11-10-2018 : 1935 Admission Diagnosis: Attending: JOHANA EL Current LOS: 1 Anticipated DC Date: Planned Disposition: Assisted Living Primary Insurance: [facility] MEDIC[employer] SOLUTIONS Discharge Planning Comments: CM called and spoke with Milagros at [facility]. Patient is non-verbal other than just a few words. Milag[facility] from the [facility] stated that the patient has been at their facility since September 14 from which at that time was released from [facility]. Milagros states that the patient has been falling very often at the facility. Reports of falling at least 25 times within the last month. Milagros explained that the patient walks freely within the unit at all times and they are not allowed to restrain her. She also stated that as of yesterday they had found out that the patient was on Keppra prior to admission to [facility] and has Hx of seizures. Patient has been off this medication since at least 09/14/18. Milagros stated she thinks that patient may have had seizure yesterday when she fell because she stiffened out and fell straight back and popped her head on the floor. Nursing is aware of this and will check with Dr. Yang when he arrives to see patient. Milagros stated that at this time they are planning on taking patient back but will need to re-evaluate patient prior to readmission. CM asked if patient will require a ORION before readmit and Milagros stated "No". CM will continue to follow and assist as needed with discharge planning / needs. Adjustment Examiner: Bianca Roe DCPIA - Discharge Planning Initial Assessment Updated by [email or web address]: Bianca Roe on 11/11/18 4:32 pm * Is the patient Alert and Oriented? No * PCP [facility] * [facility]acy [facility] * Preadmission Environment Memory Care * Other Environment LOCKED UNIT * Facility Name [facility] * ADLs Independent * Equipment None * List name and contact numbers for known caregivers / representatives who currently or will assist patient after discharge: FARZAD ENGLE [facility] - [phone] * Verbal permission to speak to the caregivers and representatives has been obtained from the patient. N/A * Additional services required to return to the preadmission environment? No * Can the patient safely return to the preadmission environment? Yes * Has this patient been hospitalized within the prior 30 days at any hospital? No Last DP export: 11/11/18 3:39 p Patient Name: VANDANA WILLIAM Page [phone] at 1704 All edits/amendments must be made on the electronic document DICTATION DATE: 11/11/181702 BARK SKINNER: SHIVA 11/11/181702 RPT#: [id number] DC DATE: STATUS: ADM IN [facility] [address] [place] [address] END OF REPORT
[2018-11-12] VITALS (18 sets, daily range): BP systolic 101–156; BP diastolic 41–82
[2018-11-12 04:34] LABS: BASOPHILS 0 % (0-2); EOSINOPHILS 0 % (0-7); HEMATOCRIT 31.7 % (36.0-48.0); HEMOGLOBIN 10.6 g/dL (12-16); IMMATURE GRANULOCYTES 0.2 % (0-5); LYMPHOCYTES 41.5 % (15-50); MCH 33.3 pg (26.0-34.0); MCHC 33.4 g/dL (31.0-37.0); MCV 99.7 fL (80.0-100.0); MEAN PLATELET VOLUME 10.5 fL (7.4-10.4); NEUTROPHILS 55.3 % (40-80); PLATELET COUNT 203 10x3/uL (130-400); RBC 3.18 10x6/uL (4.00-5.40); RDW 15.5 % (11.5-14.5); WBC 18.8 10x3/uL (4.8-10.8)
[2018-11-12 05:00] LABS: ALBUMIN 2.9 g/dL (3.4-5.0); ANION GAP 11.9 mmol/L (8-16); BILIRUBIN - TOTAL 1.05 mg/dL (0.2-1.3); CARBON DIOXIDE 26.5 mmol/L (21.0-32.0); CREATININE - SERUM 0.8 mg/dL (0.6-1.3); MAGNESIUM - SERUM 2.1 mg/dL (1.8-2.4); PHOSPHOROUS 4.1 mg/dL (2.5-4.9); POTASSIUM - SERUM 3.4 mmol/L (3.5-5.1); PROTEIN - SERUM 5.9 g/dL (6.4-8.2)
--- NOTE | 2018-11-12 14:20 | MORECARE ---
CASE MANAGEMENT DISCHARGE SUMMARY PATIENT: VANDANA WILLIAM UNIT: [id number] ADM DATE: 11/10/18 AGE: 83 : 33 SEX: F ROOM/BED: D[facility] AUTHOR: KINGSLEY,DOC PHYSICIAN: REFERRING PHYSICIAN: JOHANA EL MD DATE OF SERVICE: 11/12/18 Discharge Plan Patient Name: VANDANA WILLIAM Facility: [facility]:[place] : 1935 Planned Disposition: Assisted Living Anticipated Discharge Date: Discharge Date: Expected LOS: Initial Reviewer: [email or web address] Initial Review Date: 11/10/2018 Generated: 11/12/18 3:19 pm Comments DCP- Discharge Planning Updated by [email or web address]: Bianca Roe on 11/11/18 4:[address] Patient Name: VANDANA WILLIAM Admission Status: ER Accout number: [id number] Admission Date: 11-10-2018 : 1935 Admission Diagnosis: Attending: JOHANA EL Current LOS: 1 Anticipated DC Date: Planned Disposition: Assisted Living Primary Insurance: [facility] MEDICARE SOLUTIONS Discharge Planning Comments: CM called and spoke with Milagros at [facility]. Patient is non-verbal other than just a few words. Milagros from the [facility] stated that the patient has been at their facility since September 14 from which at that time was released from [facility]. Milagros states that the patient has been falling very often at the facility. Reports of falling at least 25 times within the last month. Milagros explained that the patient walks freely within the unit at all times and they are not allowed to restrain her. She also stated that as of yesterday they had found out that the patient was on Keppra prior to admission to [facility] and has Hx of seizures. Patient has been off this medication since at least 09/14/18. Milagros stated she thinks that patient may have had seizure yesterday when she fell because she stiffened out and fell straight back and popped her head on the floor. Nursing is aware of this and will check with Dr. Yang when he arrives to see patient. Milagros stated that at this time they are planning on taking patient back but will need to re-evaluate patient prior to readmission. CM asked if patient will require a ORION before readmit and Milagros stated "No". CM will continue to follow and assist as needed with discharge planning / needs. Printed Circuit Boards Plasma Etcher: Bianca Roe DCPIA - Discharge Planning Initial Assessment Updated by [email or web address]: Bianca Roe on 11/11/18 4:32 pm * Is the patient Alert and Oriented? No * PCP [facility] * Pharmacy [facility] * Preadmission Environment Memory Care * Other Environment LOCKED UNIT * Facility Name [facility] * ADLs Independent * Equipment None * List name and contact numbers for known caregivers / representatives who currently or will assist patient after discharge: FARZAD WARREN [facility] - [phone] * Verbal permission to speak to the caregivers and representatives has been obtained from the patient. N/A * Additional services required to return to the preadmission environment? No * Can the patient safely return to the preadmission environment? Yes * Has this patient been hospitalized within the prior 30 days at any hospital? No External Providers External Provider: [facility] *(provides inpt [facility] Next Contact Date: Service Request Date: Service Type: Resolution: Reviewer: Comments: Last DP export: 11/11/18 4:04 p Patient Name: VANDANA WILLIAM Page [phone] at 1420 All edits/amendments must be made on the electronic document DICTATION DATE: 11/12/181418 BUSINESS INFORMATION MANAGER: SHIVA 11/12/181418 RPT#: [id number] DC DATE: STATUS: ADM IN [facility] [address] [place] [address] END OF REPORT
--- NOTE | 2018-11-12 15:02 | CN ---
PATIENT NAME:VANDANA WILLIAM MEDICAL RECORD: [id number] : 31 LOCATION:[facility] ADMIT DATE: 11/10/18 ACCOUNT: [id number] CONSULTING PHYSICIAN: PINKY NAM MD REFERRING PHYSICIAN: JOHANA EL MD DATE OF CONSULTATION: 11/11/2018 IDENTIFYING DATA: The patient is 83 years old and she is admitted to the hospital secondary to a subdural hematoma. CHIEF COMPLAINT: None. HISTORY OF PRESENT ILLNESS: The patient is known to me from recent clinical contact. She spent some time on the behavioral unit secondary to aggressive behavior at the [facility]. Apparently, she has fallen at the [facility] and now has a subdural hematoma. The patient is advanced in her dementia and there is little that can be done for her psychiatrically, other than trying to make her manageable in a long-term care setting. She is very disorganized. ASSESSMENT: Senile dementia of the Alzheimer's type with behavioral disturbances. PLAN: The patient can be treated with a low dose of IM Geodon if her behavior becomes problematic. I anticipate it will given the fact that she is requiring steroids secondary to her head injury. If she does require transfer to the behavioral unit at some time because of this, I would be happy to admit her and manage her medications from here. Otherwise, I would recommend returning her to a familiar environment, namely the [facility] that she comes from as soon as it is a practical to do so. Again, in the interim, a p.r.n. of Geodon will be helpful in controlling her behaviors and may or may not require a low dose of a benzodiazepine should they become problematic. She is a very high fall risk. She has almost no short term memory. TRANSINT:[id number] Voice Confirmation ID: [id number] DOCUMENT ID: [id number] PINKY NAM MD at 1502 CC: [id number] DICTATION DATE: 11/11/18 1650 DIESEL SERVICE APPRENTICE: 11/11/18 2329 ADM IN [place] [address] [place] [address]
--- NOTE | 2018-11-12 15:44 | MORECARE ---
CASE MANAGEMENT DISCHARGE SUMMARY PATIENT: VANDANA WILLIAM UNIT: [id number] ADM DATE: 11/10/18 AGE: 83 : 33 SEX: F ROOM/BED: D.[facility] AUTHOR: KINGSLEYDOC PHYSICIAN: REFERRING PHYSICIAN: JOHANA MONTGOMERY MD DATE OF SERVICE: 11/12/18 Discharge Plan Patient Name: VANDANA WILLIAM Facility: [facility]:[place] : 1935 Planned Disposition: Assisted Living Anticipated Discharge Date: Discharge Date: Expected LOS: Initial Reviewer: [email or web address] Initial Review Date: 11/10/2018 Generated: 11/12/18 4:44 pm Comments DCP- Discharge Planning Updated by [email or web address]: Bianca Roe on 11/12/18 2:[address] CM notified that JOSEFINA Engle and Dr. Montgomery had spoken and had made a decision for Hospice Care. TISHA called and spoke with Admin at [facility] ([facility] [phone]) to see if will accept patient back on hospice and which company they have contracts with. Loi stated that they do accept patients on hospice. He stated it was family choice of agency. Loi also stated that they would need to re-evaluate patient before they could accept her back into assisted living. Loi stated that he would not be able to evaluate her until in am. TISHA called and spoke to [place] to get [facility]. TISHA explained that [facility] may not accept her back and that we may need to be looking at other placement arrangements. [place] was very concerned about not being able to find placement for patient. TISHA also asked [place] about when Hospice is needing legals signed if she had a fax she would be able to use. TISHA obtained fax number [phone] and email [email or web address] if needed for hospice. TISHA notified Sharyn with [facility] of referral and faxed over records as requested. CM will continue to follow and assist as needed with discharge planning / needs. DCP- Discharge Planning Updated by [email or web address]: Bianca Roe on 11/11/18 4:[address] Patient Name: VANDANA WILLIAM Admission Status: ER Accout number: [id number] Admission Date: 11-10-2018 : 1935 Admission Diagnosis: Attending: JOHANA MONTGOMERY Current LOS: 1 Anticipated DC Date: Planned Disposition: Assisted Living Primary Insurance: [facility] MEDICARE SOLUTIONS Discharge Planning Comments: CM called and spoke with Milagros at [facility]. Patient is non-verbal other than just a few words. Milagros from the [facility] stated that the patient has been at their facility since September 14 from which at that time was released from [facility]. Milagros states that the patient has been falling very often at the facility. Reports of falling at least 25 times within the last month. Milagros explained that the patient walks freely within the unit at all times and they are not allowed to restrain her. She also stated that as of yesterday they had found out that the patient was on Keppra prior to admission to [facility] and has Hx of seizures. Patient has been off this medication since at least 09/14/18. Milagros stated she thinks that patient may have had seizure yesterday when she fell because she stiffened out and fell straight back and popped her head on the floor. Nursing is aware of this and will check with Dr. Yang when he arrives to see patient. Milagros stated that at this time they are planning on taking patient back but will need to re-evaluate patient prior to readmission. CM asked if patient will require a ORION before readmit and Milagros stated "No". CM will continue to follow and assist as needed with discharge planning / needs. Char Dust Cleaner And Salvager: Bianca Roe DCA - Discharge Planning Initial Assessment Updated by [email or web address]: Bianca Roe on 11/11/18 4:32 pm * Is the patient Alert and Oriented? No * PCP [facility] * [facility]acy [facility] * Preadmission Environment Memory Care * Other Environment LOCKED UNIT * Facility Name [facility] * ADLs Independent * Equipment None * List name and contact numbers for known caregivers / representatives who currently or will assist patient after discharge: FARZAD WARREN [facility] - [phone] * Verbal permission to speak to the caregivers and representatives has been obtained from the patient. N/A * Additional services required to return to the preadmission environment? No * Can the patient safely return to the preadmission environment? Yes * Has this patient been hospitalized within the prior 30 days at any hospital? No Last DP export: 11/12/18 1:20 p Patient Name: VANDANA WILLIAM Page [phone] at 1544 All edits/amendments must be made on the electronic document DICTATION DATE: 11/12/181542 LOCUM TENENS: SHIVA 11/12/181542 RPT#: [id number] DC DATE: STATUS: ADM IN [facility] [address] [place] [address] END OF REPORT
--- NOTE | 2018-11-12 20:00 | MORECARE ---
CASE MANAGEMENT DISCHARGE SUMMARY PATIENT: VANDANA WILLIAM UNIT: [id number] ADM DATE: 11/10/18 AGE: 83 : 33 SEX: F ROOM/BED: D.07 AUTHOR: KINGSLEY,DOC PHYSICIAN: REFERRING PHYSICIAN: JOHANA MONTGOMERY MD DATE OF SERVICE: 11/12/18 Discharge Plan Patient Name: VANDANA WILLIAM Facility: [facility]:[place] : 1935 Planned Disposition: Assisted Living Anticipated Discharge Date: Discharge Date: Expected LOS: Initial Reviewer: [email or web address] Initial Review Date: 11/10/2018 Generated: 11/12/18 8:59 pm DCP- Discharge Planning Updated by [email or web address]: Bianca Roe on 11/12/18 6:[address] Yamilex with [facility] came and evaluated patient and stated that she was GIP appropriate for [facility]. Allison ROCHA was notified and [facility] is faxing her the legal records to sign for admission. CM notified Loi @ [facility] that patient was accepted to Inpatient Hospice and he wouldn't need come to do assessment in am. Planning on admit to Hospice this evening. Loi showed up to see patient @ 1740. He evaluated patient and decided that the patient could be admitted to [facility] and have hospice care. He then started calling the POA, his facility and [facility] trying to get disposition changed. After multiple calls and an hour of waiting to find out what the plan was going to be. At 1907 Cristi with Hospice called and spoke with Loi and decision was made for the patient to go to INpt Hospice to get stabilized then return to [facility] with [facility]. Nursing called report to [facility] and patient will go to room 558. CM called [facility] for transport. DCP- Discharge Planning Updated by [email or web address]: Bianca Roe on 11/12/18 2:[address] TISHA notified that JOSEFINA Lopez and Dr. Montgomery had spoken and had made a decision for Hospice Care. TISHA called and spoke with Admin at [facility] ([facility] [phone]) to see if will accept patient back on hospice and which company they have contracts with. Loi stated that they do accept patients on hospice. He stated it was family choice of agency. Loi also stated that they would need to re-evaluate patient before they could accept her back into assisted living. Loi stated that he would not be able to evaluate her until in am. TISHA called and spoke to Allison to get [facility]. TISHA explained that [facility] may not accept her back and that we may need to be looking at other placement arrangements. Allison was very concerned about not being able to find placement for patient. TISHA also asked Allison about when Hospice is needing legals signed if she had a fax she would be able to use. CM obtained fax number [phone] and email [email or web address] if needed for hospice. CM notified Sharyn with [facility] of referral and faxed over records as requested. CM will continue to follow and assist as needed with discharge planning / needs. DCP- Discharge Planning Updated by [id number]: Bianca Roe on 11/11/18 4:[address] Patient Name: VANDANA WILLIAM Admission Status: ER Accout number: [id number] Admission Date: 11-10-2018 : 1935 Admission Diagnosis: Attending: JOHANA MONTGOMERY Current LOS: 1 Anticipated DC Date: Planned Disposition: Assisted Living Primary Insurance: [facility] [employer] Discharge Planning Comments: CM called and spoke with Milagros at [facility]. Patient is non-verbal other than just a few words. Milagros from the [facility] stated that the patient has been at their facility since September 14 from which at that time was released from [facility]. Milagros states that the patient has been falling very often at the facility. Reports of falling at least 25 times within the last month. Milagros explained that the patient walks freely within the unit at all times and they are not allowed to restrain her. She also stated that as of yesterday they had found out that the patient was on Keppra prior to admission to [facility] and has Hx of seizures. Patient has been off this medication since at least 09/14/18. Milagros stated she thinks that patient may have had seizure yesterday when she fell because she stiffened out and fell straight back and popped her head on the floor. Nursing is aware of this and will check with Dr. Yang when he arrives to see patient. Milagros stated that at this time they are planning on taking patient back but will need to re-evaluate patient prior to readmission. CM asked if patient will require a ORION before readmit and Milagros stated "No". CM will continue to follow and assist as needed with discharge planning / needs. Manager Materials Management: Bianca Roe DCPIA - Discharge Planning Initial Assessment Updated by [email or web address]: Bianca Roe on 11/11/18 4:32 pm * Is the patient Alert and Oriented? No * PCP [facility] * Pharmacy [facility] * Preadmission Environment Memory Care * Other Environment LOCKED UNIT * Facility Name [facility] * ADLs Independent * Equipment None * List name and contact numbers for known caregivers / representatives who currently or will assist patient after discharge: ALLISON [facility] - [phone] * Verbal permission to speak to the caregivers and representatives has been obtained from the patient. N/A * Additional services required to return to the preadmission environment? No * Can the patient safely return to the preadmission environment? Yes * Has this patient been hospitalized within the prior 30 days at any hospital? No Last DP export: 11/12/18 2:44 p Patient Name: VANDANA WILLIAM Page [id number] at 2000 All edits/amendments must be made on the electronic document DICTATION DATE: 11/12/181958 DENTAL TECHNICIAN METAL: SHIVA 11/12/181958 RPT#: [id number] DC DATE: STATUS: ADM IN [facility] [address] [place] [address] END OF REPORT
--- NOTE | 2018-11-13 18:10 | MORECARE ---
CASE MANAGEMENT DISCHARGE SUMMARY PATIENT: VANDANA WILLIAM UNIT: [id number] ADM DATE: 11/10/18 AGE: 83 : 33 SEX: F ROOM/BED: D.CV07 AUTHOR: KINGSLEY,DOC PHYSICIAN: REFERRING PHYSICIAN: JOHANA MONTGOMERY MD DATE OF SERVICE: 11/13/18 Discharge Plan Patient Name: VANDANA WILLIAM Facility: [facility]:[place] : 1935 Planned Disposition: Assisted Living Anticipated Discharge Date: Discharge Date: 11/12/2018 Expected LOS: Initial Reviewer: [email or web address] Initial Review Date: 11/10/2018 Generated: 11/13/18 7:09 pm DCP- Discharge Planning Updated by [email or web address]: Bianca Roe on 11/12/18 6:[address] Yamilex with [facility] came and evaluated patient and stated that she was GIP appropriate for [facility]. Allison ROCHA was notified and [facility] is faxing her the legal records to sign for admission. CM notified Loi @ [facility] that patient was accepted to Inpatient Hospice and he wouldn't need come to do assessment in am. Planning on admit to Hospice this evening. Loi showed up to see patient @ 1740. He evaluated patient and decided that the patient could be admitted to [facility] and have hospice care. He then started calling the POA, his facility and [facility] trying to get disposition changed. After multiple calls and an hour of waiting to find out what the plan was going to be. At 1907 Cristi with Hospice called and spoke with Loi and decision was made for the patient to go to IN Hospice to get stabilized then return to [facility] with [facility]. Nursing called report to [facility] and patient will go to room 558. CM called [facility] for transport. DCP- Discharge Planning Updated by [id number]: Bianca Roe on 11/12/18 2:[address] TISHA notified that POA Allison Engle and Dr. Montgomery had spoken and had made a decision for Hospice Care. CM called and spoke with Admin at [facility] ([facility] [phone]) to see if will accept patient back on hospice and which company they have contracts with. Loi stated that they do accept patients on hospice. He stated it was family choice of agency. Loi also stated that they would need to re-evaluate patient before they could accept her back into assisted living. Loi stated that he would not be able to evaluate her until in am. CM called and spoke to Allison to get [facility]. CM explained that [facility] may not accept her back and that we may need to be looking at other placement arrangements. Allison was very concerned about not being able to find placement for patient. TISHA also asked Allison about when Hospice is needing legals signed if she had a fax she would be able to use. CM obtained fax number [phone] and email [email or web address] if needed for hospice. CM notified Sharyn with [facility] of referral and faxed over records as requested. CM will continue to follow and assist as needed with discharge planning / needs. DCP- Discharge Planning Updated by [email or web address]: Bianca Roe on 11/11/18 4:[address] Patient Name: VANDANA WILLIAM Admission Status: ER Accout number: [id number] Admission Date: 11-10-2018 : 1935 Admission Diagnosis: Attending: JOHANA MONTGOMERY Current LOS: 1 Anticipated DC Date: Planned Disposition: Assisted Living Primary Insurance: [facility] [employer] Discharge Planning Comments: CM called and spoke with Milagros at [facility]. Patient is non-verbal other than just a few words. Milagros from the [facility] stated that the patient has been at their facility since September 14 from which at that time was released from [facility]. Milagros states that the patient has been falling very often at the facility. Reports of falling at least 25 times within the last month. Milagros explained that the patient walks freely within the unit at all times and they are not allowed to restrain her. She also stated that as of yesterday they had found out that the patient was on Keppra prior to admission to [facility] and has Hx of seizures. Patient has been off this medication since at least 09/14/18. Milagros stated she thinks that patient may have had seizure yesterday when she fell because she stiffened out and fell straight back and popped her head on the floor. Nursing is aware of this and will check with Dr. Yang when he arrives to see patient. Milagros stated that at this time they are planning on taking patient back but will need to re-evaluate patient prior to readmission. CM asked if patient will require a ORION before readmit and Milagros stated "No". CM will continue to follow and assist as needed with discharge planning / needs. Director Of Global Marketing: Bianca Roe DCPIA - Discharge Planning Initial Assessment Updated by [id number]: Bianca Roe on 11/11/18 4:32 pm * Is the patient Alert and Oriented? No * PCP [facility] * [facility]acy [facility] * Preadmission Environment Memory Care * Other Environment LOCKED UNIT * Facility Name [facility] * ADLs Independent * Equipment None * List name and contact numbers for known caregivers / representatives who currently or will assist patient after discharge: ALLISON ENGLE [facility] - [phone] * Verbal permission to speak to the caregivers and representatives has been obtained from the patient. N/A * Additional services required to return to the preadmission environment? No * Can the patient safely return to the preadmission environment? Yes * Has this patient been hospitalized within the prior 30 days at any hospital? No Last DP export: 11/12/18 6:59 p Patient Name: VANDANA WILLIAM Page [id number] at 1810 All edits/amendments must be made on the electronic document DICTATION DATE: 11/13/181808 TOOL GRINDING TECHNICIAN: SHIVA 11/13/181808 RPT#: [id number] DC DATE:11/12/18 STATUS: DIS IN [facility] [address] [place] [address] END OF REPORT
== END 2018-11-12 22:30 | disposition home health service (06) | DRG 86 ==
LOC: D.ER 15:36 → D.CVICU 17:15
PROVIDERS: Family Medicine; ADMIT Internal Medicine Nephrology; ATTEND Internal Medicine Nephrology
DX: S06.5X0A Traumatic subdural hemorrhage without loss of consciousness, initial encounter (principal); F02.81 Dementia in other diseases classified elsewhere, unspecified severity, with behavioral disturbance; W19.XXXA Unspecified fall, initial encounter; G30.1 Alzheimer's disease with late onset; I11.0 Hypertensive heart disease with heart failure; I50.9 Heart failure, unspecified; E78.5 Hyperlipidemia, unspecified; K59.00 Constipation, unspecified; D53.9 Nutritional anemia, unspecified